=== PATIENT | male | born 1940 | race Caucasian/White ===

== ENCOUNTER 2019-05-21 13:41 | Emergency (ER) | payer OTHER ==
[~2019-05-21] VITALS: Ht 180.3 cm; Wt 84.8 kg
[2019-05-21 13:48] VITALS: Ht 180.3 cm; Wt 84.8 kg
[2019-05-21 14:49] LABS: BASOPHIL % 0.9 % (0-2); PLATELET COUNT 244 x10^3mcL (130-400); RED CELL DISTRIBUTION WIDTH 13.4 % (11.5-14.5)
[2019-05-21 15:09] LABS: CALCIUM 9.5 mg/dL (8.5-10.1); CARBON DIOXIDE 29.8 mmol/L (21-32); CHLORIDE SERUM 99 mmol/L (98-107); CREATININE SERUM 1.5 mg/dL (0.7-1.3); GLUCOSE SERUM 218 mg/dL (74-106); SODIUM SERUM 135 mmol/L (136-145)
[2019-05-21 15:14] LABS: ALBUMIN 3.8 g/dL (3.4-5.0); ALKALINE PHOSPHATASE 66 U/L (46-116); ALT/SGPT 28 U/L (16-63); AST/SGOT 19 U/L (15-37); BILIRUBIN TOTAL 0.4 mg/dL (0.20-1.00); TOTAL PROTEIN, SERUM 7.4 g/dL (6.4-8.2)
[2019-05-21 17:18] VITALS: BP 163/93
== END 2019-05-21 17:18 | disposition short-term general hospital (02) ==
LOC: ED 13:41
PROVIDERS: Emergency Medicine
DX: I61.1 Nontraumatic intracerebral hemorrhage in hemisphere, cortical (principal); I10 Essential (primary) hypertension; E78.00 Pure hypercholesterolemia, unspecified
CPT/HCPCS: J3490; Q0092